=== PATIENT | male | born 1970 | race Caucasian/White ===

== ENCOUNTER 2016-05-08 18:59 | Emergency (ER) | payer MEDICARE ==
[2016-05-08 19:31] VITALS: RESP 18; TEMP 98
--- NOTE | 2016-05-08 20:14 | ED ---
General Adult HPI - General Chief complaint: Fall Stated complaint: FELL 8 FT NECK STIFF, LEFT HIP AND FOOT PAIN Time Seen by Provider: 05/08/16 19:51 Source: patient, family, RN notes reviewed Mode of arrival: wheelchair Limitations: no limitations - History of Present Illness Initial comments: Chief complaint and history of present illness is a 38-year-old male reports that he was on a ladder in his garage with a 12 foot high ceiling. Jazmín without The rafters tried to pull himself up and was able to manage to do so. He then fell to the cement floor below. He landed more on his left foot complains of left foot left heel pain also under was buttock and bumped his head when he fell backwards. This happened at 9:30 this morning denies loss of conscious. Initially able to walk into the house and keep his legs elevated but since then he developed pain to his foot ankle buttock low back mid back and head and neck - Related Data Home Medications Medication Instructions Recorded Confirmed Aspirin EC [Ecotrin Low Dose] 81 mg PO DAILY 01/21/14 05/08/16 Atenolol [Tenormin] 25 mg PO DAILY 01/21/14 05/08/16 Baclofen [Lioresal] 10 mg PO TID 01/21/14 05/08/16 Nortriptyline [Pamelor] 50 mg PO HS 01/21/14 05/08/16 Adalimumab [Humira Pen] 80 mg SQ Q14D 07/03/15 05/08/16 Omeprazole [PriLOSEC] 40 mg PO AC-BRKFST 07/03/15 05/08/16 Simvastatin 20 mg PO HS 07/03/15 05/08/16 Topiramate 25 mg PO BID 07/03/15 05/08/16 metFORMIN HCL ER [Glucophage Xr] 500 mg PO BID 07/03/15 05/08/16 Gabapentin [Neurontin] 2 tab PO BID 08/06/15 05/08/16 Previous Rx's Medication Instructions Recorded Nitroglycerin Sl Tabs [Nitrostat] 0.4 mg SUBLINGUAL Q5M PRN #100 tab 07/05/15 traMADol HCl [Ultram] 50 mg PO Q6H PRN #30 tab 05/08/16 Allergies Allergy/AdvReac Type Severity Reaction Status Date / Time No Known Allergies Allergy Verified 05/08/16 19:54 Review of Systems ROS Statement: Those systems with pertinent positive or pertinent negative responses have been documented in the HPI. Review of systems. Patient complaints as noted in the chief complaint. All systems were otherwise reviewed. Past medical problems, diabetes mellitus, fibromyalgia, hypertension, [place], sleep apnea, degenerative disc disease with ankylosing spondylitis. The patient's past surgeries include cholecystectomy, previous heart catheterization nasal surgery. ROS Other: All systems not noted in ROS Statement are negative. Past Medical History Past Medical History: Diabetes Mellitus, Fibromyalgia, Hypertension, Myocardial Infarction ([place]), Sleep Apnea/CPAP/BIPAP Additional Past Medical History / Comment(s): DDD, arthritis, back pain, Ankylosing Spondylitis Last Myocardial Infarction Date:: 2015 Mini Heart Attack History of Any Multi-Drug Resistant Organisms: None Reported Past Surgical History: Cholecystectomy, Heart Catheterization Additional Past Surgical History / Comment(s): Nasal surgery, vasectomy, hernia surgery Past Anesthesia/Blood Transfusion Reactions: No Reported Reaction Past Psychological History: No Psychological Hx Reported Smoking Status: Never smoker Past Alcohol Use History: None Reported Past Drug Use History: None Reported General Exam - General Exam Comments Initial Comments: General: The patient is awake and alert, [place] collar was placed when the patient arrived via private auto. Vital signs show temperature 98.0 pulse 87 respiratory rate 18 pulse ox 90% room air blood pressure 151/86. Elevated systolic and diastolic noted. Patient is in pain he will be following up with his family physician next 1-4 weeks Eye: Pupils are equal, round and reactive to light, extra-ocular movements are intact ; there is normal conjunctiva bilaterally. No signs of icterus. Ears, nose, mouth and throat: There are moist mucous membranes and no oral lesions. No chipped teeth no TMJ pain Neck: Patient has a [place] collar on. Complaining of neck pain prior to getting to emergency room. Cardiovascular: There is a regular rate and rhythm. No murmur, rub or gallop is appreciated. Respiratory: Lungs are clear to auscultation, respirations are non-labored, breath sounds are equal. No wheezes, stridor, rales, or rhonchi. Gastrointestinal: Soft, non-distended, non-tender abdomen without masses or organomegaly noted. There is no rebound or guarding present. No CVA tenderness. Bowel sounds are unremarkable. Back: Pain to his mid thoracic spine and lumbar spine. Pain to his left buttock region. Pain to his left foot and heel. Musculoskeletal: Normal ROM, no tenderness, There is no calf tenderness or swelling. Sensation intact. Pulses equal bilaterally 2+. Neurological: CN II-XII intact, There are no obvious motor or sensory deficits. Coordination appears grossly intact. Speech is normal. No focal or lateralizing findings. No focal or lateralizing findings Skin: Skin is warm and dry and no rashes or lesions are noted. Limitations: no limitations Course Vital Signs 05/08/16 19:27 Temperature 98.0 F Pulse Rate 87 Respiratory 18 Rate Blood Pressure 151/86 O2 Sat by Pulse 98 Oximetry Medical Decision Making - Medical Decision Making Multiple x-rays were done and reviewed by radiologist his findings are; CT of the brain and cervical spine were done and reviewed and they are entirety. Final impression is negative CT of the brain. Spondylotic changes in the cervical spine. No fracture. As read by Dr. De Souza x-ray of the thoracic spine was done and reviewed by radiologist his findings are vertebra a fairly normal alignment. There is spurring throughout the thoracic spine. There is no evidence of paraspinal mass. Posterior elements are intact. See no compression fracture. Impression; spondylotic change. No fracture seen. No change compared to the lateral chest x-ray of 07/03/15. As read by Dr. De Souza X-rays of lumbosacral spine were done and reviewed by radiologist his final impression is no fracture seen. There are ankylotic changes that are suggestive of ankylosing spondylitis. As read by Dr. De Souza X-ray of the pelvis is done and reviewed by radiologist's his final impression is no acute abnormality of the pelvis. As read by Dr. De Souza X-ray of the foot, left foot were done and reviewed by radiologist his findings are no fracture dislocation. Metatarsals are intact. There are plantar and Achilles calcaneal spurs. Impression calcaneal spurring. No fracture seen. As read by Dr. De Souza X-rays of the left calcaneus reviewed by radiologist his findings are subtalar joint is normal. There are plantar and Achilles calcaneal spurs. No fracture. Impression calcaneal spurring. No fracture seen. As read by Dr. De Souza Examination finds no changes. The patient be given tramadol which has worked in the past. Told to follow-up with family physician. Disposition Clinical Impression: Fall, Musculoskeletal strain, History of ankylosing spondylitis, Contusion, multiple sites Disposition: HOME SELF-CARE Condition: Fair Instructions: Contusion in Adults (ED) Additional Instructions: Follow-up with family physician. Use ice were hurts. Use tramadol for pain. Return emergency room if you have any difficulties. Prescriptions: traMADol HCl [Ultram] 50 mg PO Q6H PRN #30 tab PRN Reason: Pain Time of Disposition: 22:08
--- NOTE | 2016-05-08 20:37 | CT ---
EXAMINATION TYPE: CT brain lópez walsh DATE OF EXAM: 05/08/2016 8:27 PM COMPARISON: NONE HISTORY: Patient complains of backwards fall off of ladder with blow to back of head and neck. CT DLP: 1558 mGycm Automated exposure control for dose reduction was used. TECHNIQUE: CT scan of the head and cervical spine are performed without contrast. FINDINGS: The ventricles and sulci appear normal. There is no mass effect or midline shift. There i s no sign of intracranial hemorrhage. The calvarium is intact. Cervical vertebra have normal alignment. There is hypertrophic spurring of the endplates from C3 to C 5. Facet joints are intact. Skull base is intact. I see no fracture. There is hypertrophic facet arth ropathy in the mid and lower cervical spine and more on the left side. IMPRESSION: Negative CT scan of the brain. Spondylotic changes in the cervical spine. No fracture.
--- NOTE | 2016-05-08 21:36 | XR ---
EXAMINATION TYPE: XR foot complete LT DATE OF EXAM: 05/08/2016 9:29 PM COMPARISON: NONE HISTORY: Fell 12 feet. TECHNIQUE: 3 views FINDINGS: I see no fracture nor dislocation. Metatarsals are intact. There are plantar and Achilles c alcaneal spurs. IMPRESSION: Calcaneal spurring. No fracture seen.
--- NOTE | 2016-05-08 21:37 | XR ---
EXAMINATION TYPE: XR calcaneus 2V LT DATE OF EXAM: 05/08/2016 9:29 PM COMPARISON: NONE HISTORY: Fall 2012 feet. Pain. TECHNIQUE: 2 views FINDINGS: Subtalar joint is normal. There are plantar and Achilles calcaneal spurs. I see no fracture . IMPRESSION: Calcaneal spurring. No fracture seen.
--- NOTE | 2016-05-08 21:38 | XR ---
EXAMINATION TYPE: XR pelvis AP view DATE OF EXAM: 05/08/2016 9:29 PM COMPARISON: NONE HISTORY: Fall 12 feet. Pain. TECHNIQUE: Single view FINDINGS: The pelvic ring is intact. Proximal femurs and hip joints are intact. Acetabula appear norm al. IMPRESSION: No acute abnormality of the pelvis.
--- NOTE | 2016-05-08 21:39 | XR ---
EXAMINATION TYPE: XR lumbosacral spine min 4V DATE OF EXAM: 05/08/2016 9:30 PM COMPARISON: NONE HISTORY: Back pain TECHNIQUE: 5 views FINDINGS: There is some bridging osteophyte formation in the lumbar spine. There is multilevel facet arthropathy with some ankylotic changes. Sacroiliac joints are intact. IMPRESSION: No fracture seen. There are ankylotic changes that are suggestive of ankylosing spondylit is.
--- NOTE | 2016-05-08 21:41 | XR ---
EXAMINATION TYPE: XR thoracic spine 2V DATE OF EXAM: 05/08/2016 9:30 PM COMPARISON: NONE HISTORY: Pain TECHNIQUE: 4 views FINDINGS: Vertebrae are fairly normal alignment. There is spurring throughout the thoracic spine. The re is no evidence of paraspinal mass. Posterior elements are intact. I see no compression fracture. IMPRESSION: Spondylotic changes. No fracture seen. No change compared to lateral chest x-ray of 2015.
[2016-05-08] MEDS ORDERED: traMADol 50 MG TAB PO STA (22:04)
[2016-05-08 22:18] VITALS: BP 138/68; PULSE 76
== END 2016-05-08 22:16 | disposition home or self-care (01) ==
LOC: EC 18:59
DX: T14.8 Other injury of unspecified body region (principal); E11.9 Type 2 diabetes mellitus without complications; I10 Essential (primary) hypertension; M79.7 Fibromyalgia; M19.90 Unspecified osteoarthritis, unspecified site; G47.30 Sleep apnea, unspecified; Z79.82 Long term (current) use of aspirin; Z79.899 Other long term (current) drug therapy; Z79.84 Long term (current) use of oral hypoglycemic drugs; W11.XXXA Fall on and from ladder, initial encounter; Y92.008 Other place in unspecified non-institutional (private) residence as the place of occurrence of the external cause
CPT/HCPCS: 70450; 72070; 72110; 72125; 72170; 99284

== ENCOUNTER → 2016-08-05 | Outpatient (CLI) | payer MEDICARE ==
--- NOTE | 2016-08-12 12:32 | P.ARTDOP ---
Arterial Doppler LOWER EXTREMITY ARTERIAL DOPPLER: DATE OF SERVICE: 08/05/2016 Reason for study: Suspect PVD. Doppler waveforms: Multiphasic bilaterally throughout. Pulse volume recording: Normal configuration. Pressure gradients: None. Ankle-brachial indices: Greater than 1 bilaterally. Toe pressures: 113 on the right, 97 on the left Impression: Normal study.
== END | disposition home or self-care (01) ==
LOC: RADUSWWP 12:35
PROVIDERS: ATTEND Family Medicine
DX: I73.9 Peripheral vascular disease, unspecified (principal)
CPT/HCPCS: 93923

== ENCOUNTER → 2016-08-12 | Outpatient (CLI) | payer MEDICARE ==
[2016-08-12 07:07] LABS: Blood Urea Nitrogen 18 mg/dL (9-20); Non-African American GFR(MDRD) >60 (>60 ml/min/1.73 sqM)
--- NOTE | 2016-08-12 13:34 | MR ---
EXAMINATION TYPE: MR brain wo/w con DATE OF EXAM: 08/12/2016 7:58 AM COMPARISON: 11/04/2011 HISTORY: 46-year-old male transient alteration of awareness, spasms TECHNIQUE: Multiplanar, multisequence images of the brain and brainstem were acquired before and aft er administration of 20 mL IV MultiHance. Diffusion weighted imaging is performed. FINDINGS: No evidence for acute infarction, hemorrhage, mass, mass effect, midline shift, herniation, effacemen t of basal cisterns, or extra-axial fluid collection. The ventricles and sulci are age-appropriate. Major intracranial flow voids are intact. T2/FLAIR weighted sequences show no white matter signal abnormality. Incidental partially empty sella. Otherwise, midline structures demonstrate normal morphology. The c raniocervical junction is normal. Post contrast images demonstrate no evidence of pathologic enhancement. Dural venous sinuses are pat ent. Small mucosal retention cyst right maxillary sinus. Minimal partial opacification right mastoid air c ells. Mild mucosal thickening ethmoid air cells. Leftward nasal septal deviation. Globes are intact. IMPRESSION: 1. No acute intracranial abnormality or white matter signal changes seen. 2. No enhancing lesions. 3. Some retained secretions in the right mastoid air cells. Correlate for any mastoid pain to exclude mastoiditis.
--- NOTE | 2016-08-12 13:45 | MR ---
EXAMINATION TYPE: MR angio head wo con DATE OF EXAM: 08/12/2016 7:57 AM COMPARISON: 11/04/2011 HISTORY: 46-year-old male transient alteration of awareness, spasms TECHNIQUE: High-resolution 3-D [id number] imaging of the [place]. Rotational 3-D reconst ructions generated on a dedicated independent workstation. FINDINGS: No significant stenosis, arterial occlusion, or aneurysmal changes seen. IMPRESSION: Stable and unremarkable appearance to the [place].
== END | disposition home or self-care (01) ==
LOC: RADMRIMAIN 06:37
PROVIDERS: ATTEND Psychiatry & Neurology Neurology
DX: R40.4 Transient alteration of awareness (principal); R25.9 Unspecified abnormal involuntary movements
CPT/HCPCS: 82565; 84520; 70544; 70553; A9577

== ENCOUNTER → 2016-08-17 | Outpatient (CLI) | payer MEDICARE ==
--- NOTE | 2016-08-17 07:20 | MR ---
EXAMINATION TYPE: MR shoulder LT wo con DATE OF EXAM: 08/17/2016 6:45 AM COMPARISON: NONE HISTORY: pain in lt shoulder TECHNIQUE: Multiplanar multispin echo imaging of the left shoulder was performed. FINDINGS: Rotator cuff : There is mild thickening of the supraspinatus tendon compatible chronic tendinopathy m ild in degree. There is no complete or bursal/articular sided partial rotator cuff tear. The subscapu amilcar constituent of the rotator cuff is intact. Bursa: No bursal effusion or thickening is seen. Musculature: There is no muscular tear, contusion, or atrophy. Acromioclavicular joint : Small subacromial spur appears to result in mild impingement. Mild AC joint arthropathy noted. Osseous structures : There are no fractures or regions of abnormal bone marrow si gnal intensity. Long biceps tendon : The biceps tendon is normally situated within the bicipital groove. No complete or partial biceps tendon tear is present. Glenohumeral Joint fluid : There is no glenohumeral joint effusion. Cartilage and Bone : No focal hyaline cartilage defects are noted. No Hill-Sachs, reverse Hill-Sachs, or bony Bankart lesions are seen. Labrum : There are no SLAP or soft tissue [place] lesions. No paralabral cysts are seen. OTHER FINDINGS : none IMPRESSION: 1. Mild chronic tendinopathy supraspinatus tendon
== END | disposition home or self-care (01) ==
LOC: RADMRIMAIN 06:01
PROVIDERS: ATTEND Physician Assistant Medical
DX: M67.814 Other specified disorders of tendon, left shoulder (principal)

== ENCOUNTER → 2017-07-06 | Outpatient (CLI) | payer MEDICARE ==
--- NOTE | 2017-07-06 19:47 | CONS ---
CONSULTATION This is a consultation note for sleep apnea. Brett is 47-year-old, obese male patient established having obstructive sleep apnea more than 10 years ago. The original polysomnogram is not available to me at the time of the evaluation; however, I have seen the series of CPAP titration that the patient had over the years. The last one being back in 2012 during which she was titrated a CPAP pressure of 13 cm of water. He has older generation CPAP unit which he now seeks to update. Meanwhile the patient has gained significant amount of weight. The patient used to weigh around 238 pounds back in 2012 and currently is up to 259. He has also developed multiple medical problems and comorbidities. He has rheumatologic problems including RA, possible ankylosing spondylitis and is maintained on Humira. He is also known to have diabetes, hypertension, coronary artery disease with previous CO along with fibromyalgia. He wears his CPAP every night. However he is not seeing the benefit that he used to see in the past. He feels the pressure is low. He apparently can talk through his CPAP pressure without any difficulties. He has snoring, quits breathing at night and he is having increased tiredness and sleepiness during the day. He goes to bed between 9-10 p.m. Wakes up at 10 a.m. in the morning and still feeling drowsy and sleepy with an Lowell score of 14. For that reason, he came in for evaluation. PAST MEDICAL HISTORY: 1. Obesity. 2. Obstructive sleep apnea. 3. Diabetes. 4. Hypertension. 5. Coronary artery disease. 6. Ankylosing spondylitis. 7. RA. 8. Fibromyalgia. SURGICAL HISTORY: Includes cholecystectomy, vasectomy, rhinoplasty and hernia repair. DRUG ALLERGIES: Not known. OUTPATIENT MEDICATION LIST: Includes Humira once every other week, omeprazole 40 daily, triamterene hydrochlorothiazide 37.5/25 1 tablet a day. Aspirin 81 mg p.o. daily, baclofen 10 mg on a p.r.n. basis. Atenolol 25 mg p.o. daily, metformin 500 mg twice a day, gabapentin 600 mg 3 times a day. Nortriptyline 50 mg at bedtime. Zocor 20 mg p.o. daily. Nitroglycerin 0.4 mg on a p.r.n. basis. SOCIAL HISTORY: The patient is a nonsmoker. No history of alcohol. No history of IV drugs. He is currently on disability. FAMILY HISTORY: Negative for sleep apnea. REVIEW OF SYSTEMS: 12-point review of system was done. Note that the patient has been feeling excessively fatigued and sleepy. He snores and stops breathing. He has nocturia. He has grinding of the teeth. He has dry mouth in the morning and has restlessness in his lower extremities bilaterally. He has sexual dysfunction. No anxiety. No depression. He has irritability and problems with memory and concentration. He has problems falling asleep during the day. He worries about his sleep considerably. No nocturnal chest pain. No palpitation. No nocturnal shortness of breath. He has chronic diffuse body pain. BP is 144/87, pulse 76, respirations 16, temperature 97.5 saturation 98% on room air. Weight is 259. Height is 5 feet 7 inches, BMI is 40.5. Neck size 19 inches. GENERAL APPEARANCE: Calm comfortable, no acute distress. Head is atraumatic, normocephalic. Neck short, supple. Crowding of posterior pharynx. There is no goiter or neck masses. LUNGS: Diminished breath sounds bilaterally. HEART: Sounds regular rhythm. Normal S1, S2. No S3. No murmurs. ABDOMEN: Soft, nontender. No organomegaly. EXTREMITIES: No edema. No cyanosis or clubbing. NEUROLOGICALLY: The patient is alert and oriented x3. No focal neurological deficits. PSYCHIATRICALLY: There was no anxiety or depression. The patient's mood and affect is appropriate. SKIN: Negative for any wounds or ulceration. IMPRESSION: 1. Obstructive sleep apnea coming in for re-evaluation. The patient is symptomatic despite being on CPAP pressure of 9 cm of water. He needs to be re-evaluated. The pressure needs to be updated and the patient may also need a new CPAP machine. I suspect his pressure requirements have gone up as the patient has developed multiple comorbidities and he has gained weight. 2. Obesity with a BMI of 40.5. 3. Chronic hypersomnia with an Lowell score of 14. 4. Rheumatologic problems including rheumatoid arthritis, fibromyalgia and possible ankylosing spondylitis. 5. History of chronic immune suppression with Humira. 6. Coronary artery disease with previous CO. 7. Diabetes. 8. Hyperlipidemia. PLAN: 1. Discussed the findings with the patient. 2. Encourage weight loss. 3. Obviously the patient will need another CPAP titration during which the pressures will be updated and the patient will be given a new mask interface and a new CPAP machine. 4. May need to track down his older polysomnogram that established the diagnosis many years back. 5. Continue treating his comorbidities and we will continue to follow. CARLOS / NAGA: [id number] /
== END | disposition home or self-care (01) ==
LOC: SLEEP 14:18
PROVIDERS: ATTEND Internal Medicine Critical Care Medicine
DX: G47.33 Obstructive sleep apnea (adult) (pediatric) (principal); E66.9 Obesity, unspecified; Z68.41 Body mass index [BMI] 40.0-44.9, adult; G89.29 Other chronic pain; G47.10 Hypersomnia, unspecified; M06.9 Rheumatoid arthritis, unspecified; M79.7 Fibromyalgia; I25.10 Atherosclerotic heart disease of native coronary artery without angina pectoris; E11.9 Type 2 diabetes mellitus without complications; E78.5 Hyperlipidemia, unspecified; Z86.2 Personal history of diseases of the blood and blood-forming organs and certain disorders involving the immune mechanism; Z99.89 Dependence on other enabling machines and devices; Z79.899 Other long term (current) drug therapy; Z79.82 Long term (current) use of aspirin; Z79.84 Long term (current) use of oral hypoglycemic drugs
CPT/HCPCS: 99211

== ENCOUNTER → 2017-10-26 | Outpatient (CLI) | payer MEDICARE ==
--- NOTE | 2017-10-26 14:49 | PN ---
PROGRESS NOTE This patient is a 47 -year-old coming in for a compliancy check regarding his new CPAP machine. The patient was awakened from having severe obstructive sleep apnea. A home sleep study showed an AHI of 79. The patient underwent a CPAP titration. He was titrated to a CPAP pressure of 10 cm of water. The patient was offered an Mirage FX nose mask. On today's evaluation, the patient reports marked improvement in his symptoms in general. The patient is benefiting from the treatment. He is waking up alert and refreshed during the day. He is going to travel to [place]. His son is a [employer] champion. He has traveled with him and he was going to take his CPAP machine with him knowing that he cannot fall asleep or he can maintain sleep without the CPAP machine. His compliance data indicates that he has been using his CPAP every night. His compliancy for more than 4 hours at 100%. The patient has been averaging around 8.3 hours of CPAP use per night. AHI while on treatment is down to 0.3 and the leak factor 23 L per minute. The patient has no complaints and is using a Mirage FX nose mask. REVIEW OF SYSTEMS: 12-point review of system was done. Positive findings are mentioned above history of present illness. In general the sleep quality is improved with CPAP therapy. Denies having breathing. No insomnia. No choking or gasping sensation. No nocturia. No gasping for air. No grinding of the teeth. No anxiety or panic attacks. No palpitation. No heartburn. No shortness of breath at nighttime. No claustrophobia. No sexual dysfunction. PHYSICAL EXAMINATION: BP is 119/83, pulse 87, respirations 16, Markham score of 15. Weight is , and temperature 98.0. General appearance: Calm and comfortable. Head is atraumatic, normocephalic. Neck is short, supple. Crowding of posterior pharynx. There is no goiter or neck masses. LUNGS: Clear to auscultation. HEART: Sounds are regular rate and rhythm. Normal S1, S2. No S3. No murmurs. ABDOMEN: Soft, nontender. No organomegaly. EXTREMITIES: No edema. No cyanosis or clubbing. NEUROLOGIC: Alert and oriented x3. There is no focal neurological deficits. PSYCHIATRIC: Negative for anxiety or depression. IMPRESSION: 1. Severe obstructive sleep apnea with an AHI of 79. Patient to undergo successful CPAP therapy at a pressure of 10 cm of water. 2. Chronic hypersomnia improved. 3. Morbid obesity with a BMI of 40.5. 4. Rheumatoid arthritis. 5. Fibromyalgia. 6. Coronary artery disease with previous myocardial infarction. 7. Diabetes. 8. Hyperlipidemia. PLAN: Treatment is successful. The patient will continue same CPAP pressure of 10 cm of water. Keep him on a Mirage FX nose mask. Encourage continuing the CPAP at same level of pressure. Encourage weight loss. See me back in a year's time and follow up earlier if needed. MMODL / IJN: [id number] /
== END | disposition home or self-care (01) ==
LOC: SLEEP 13:10
PROVIDERS: ATTEND Internal Medicine Critical Care Medicine
DX: G47.33 Obstructive sleep apnea (adult) (pediatric) (principal); M79.7 Fibromyalgia; I25.10 Atherosclerotic heart disease of native coronary artery without angina pectoris; E11.9 Type 2 diabetes mellitus without complications; E78.5 Hyperlipidemia, unspecified; I25.2 Old myocardial infarction; M06.9 Rheumatoid arthritis, unspecified; E66.01 Morbid (severe) obesity due to excess calories; Z68.41 Body mass index [BMI] 40.0-44.9, adult; Z99.89 Dependence on other enabling machines and devices

== ENCOUNTER → 2018-12-27 | Outpatient (CLI) | payer MEDICARE ==
--- NOTE | 2018-12-27 17:25 | PN ---
PROGRESS NOTE This is a 48-year-old male patient coming in for an annual check regarding his obstructive sleep apnea. The patient is known to have severe BRENNON with an AHI of 79 and the patient is currently on a CPAP pressure of 10 cm of water. He is using a Simplus full-face mask. In general, the patient is doing well. Based on the compliance data, the patient has been averaging around 9.2 hours of CPAP use per night. CPAP use for more than 4 hours is 100%. Leak is 36 L/minute. His weight is down by around 3 pounds since his last evaluation. His AHI while on treatment is down to 0.6. His humidity level is 5. The patient continues to use a Mirage FX nose mask. He has multiple other medical problems and comorbidities. No angina. No palpitations. No shortness of breath. No heartburn at nighttime. His hypersomnia has subsided. He has no complaints. He wants to renew his CPAP supplies. REVIEW OF SYSTEMS: Fourteen-point review of systems was done. Positive findings were all mentioned above in the history of present illness. PHYSICAL EXAMINATION: VITAL SIGNS: BP is 131/73, pulse 88, respirations 16, temperature 97.5, saturation 97% on room air. Height is 5 feet 7 inches, weight 256, and BMI is 40. GENERAL APPEARANCE: Calm, comfortable. HEAD: Atraumatic, normocephalic. NECK: Supple. No JVD. No goiter or neck masses. Mallampati class IV. LUNGS: Diminished; otherwise clear. HEART: Heart sounds are regular rate and rhythm. Normal S1, S2. No S3, S4. No murmurs. ABDOMEN: Soft, nontender. No organomegaly. EXTREMITIES: No edema. No cyanosis or clubbing. NEUROLOGIC: Alert and oriented x3. No focal neurological deficits. PSYCHIATRIC: Negative for anxiety or depression. SKIN: Negative for any wounds or ulceration. IMPRESSION: 1. Obstructive sleep apnea with apnea/hypopnea index of 79. Continues to receive successful CPAP therapy at a pressure of 10. 2. Increased leak, probably related to his older Mirage FX nose mask. 3. Chronic hypersomnia, improved. 4. Obesity with a body mass index of 40, unchanged compared to his last year's measurements. 5. Rheumatoid arthritis. 6. Fibromyalgia. 7. Coronary artery disease. 8. Previous myocardial infarction. 9. Diabetes. 10.Hyperlipidemia. PLAN: 1. Renew the patient's supplies, including a Mirage FX standard nose mask. 2. Encourage weight loss. 3. Keep the patient at the same pressure of 10 cm of water. Will continue to follow. See me back in a year's time, earlier if needed. CARLOS / NAGA: [id number] /
== END ==
LOC: SLEEP 13:59
PROVIDERS: ATTEND Internal Medicine Critical Care Medicine
DX: G47.33 Obstructive sleep apnea (adult) (pediatric) (principal); E66.9 Obesity, unspecified; M06.9 Rheumatoid arthritis, unspecified; M79.7 Fibromyalgia; I25.10 Atherosclerotic heart disease of native coronary artery without angina pectoris; I25.2 Old myocardial infarction; E11.9 Type 2 diabetes mellitus without complications; E78.5 Hyperlipidemia, unspecified; Z68.41 Body mass index [BMI] 40.0-44.9, adult

== ENCOUNTER 2019-01-03 18:21 | Emergency (ER) | payer MEDICARE ==
[2019-01-03 19:07] VITALS: BP 119/78; PULSE 75; RESP 18; TEMP 97.6
[2019-01-03] MEDS ORDERED: KETOROLAC 60 MG/2 ML VIAL IM STA (19:26)
--- NOTE | 2019-01-03 20:23 | XR ---
EXAMINATION TYPE: XR lumbar spine 2 or 3V DATE OF EXAM: 01/03/2019 COMPARISON: 05/08/2016 HISTORY: Back pain TECHNIQUE: 3 views FINDINGS: Lumbar vertebra have normal alignment. There is some ankylotic change in the lower lumbar s pine. There is disc space narrowing throughout lumbar spine. There is no compression fracture. There is some osteosclerosis at the sacroiliac joints. This could relate to chronic sacroiliitis. IMPRESSION: Spondylotic changes and sacroiliac changes and some ankylotic changes that could relate t o ankylosing spondylitis. No change compared to old exam. No fracture seen.
[2019-01-03] MEDS ORDERED: ACET/COD 300 MG/30 MG STARTER PACK 6 TAB BTL PO STA (20:41)
--- NOTE | 2019-01-03 20:42 | ED ---
Back Pain HPI - General Chief Complaint: Back Pain/Injury Stated Complaint: Bck pain/injury Time Seen by Provider: 01/03/19 19:08 Source: patient Limitations: no limitations - History of Present Illness Initial Comments: Patient is a 48-year-old male presenting to emergency Department with complaints of back pain has been increasing over the past 2 days. Patient states yesterday he was laying in bed and went to stretch his arms over niece's house when he felt a pop in his lower back. Patient states he's been having an increase in tightness and pain ever since. Patient has chronic issues with back pain and stiffness. Patient currently sees a neurology clinic. Patient denies any falls or trauma to the area. Patient denies any numbness or tingling into his extremities, trouble with urination. Patient denies any fever, chills. Patient has no other complaints at this time. Upon arrival to ER, vital signs are stable. - Related Data Home Medications Medication Instructions Recorded Confirmed Aspirin EC [Ecotrin Low Dose] 81 mg PO DAILY 01/21/14 05/08/16 Atenolol [Tenormin] 25 mg PO DAILY 01/21/14 05/08/16 Baclofen [Lioresal] 10 mg PO TID 01/21/14 05/08/16 Nortriptyline [Pamelor] 50 mg PO HS 01/21/14 05/08/16 Adalimumab [Humira Pen] 80 mg SQ Q14D 07/03/15 05/08/16 Omeprazole [PriLOSEC] 40 mg PO AC-BRKFST 07/03/15 05/08/16 Simvastatin 20 mg PO HS 07/03/15 05/08/16 Topiramate 25 mg PO BID 07/03/15 05/08/16 metFORMIN HCL ER [Glucophage Xr] 500 mg PO BID 07/03/15 05/08/16 Gabapentin [Neurontin] 2 tab PO BID 08/06/15 05/08/16 Previous Rx's Medication Instructions Recorded Nitroglycerin Sl Tabs [Nitrostat] 0.4 mg SUBLINGUAL Q5M PRN #100 tab 07/05/15 traMADol HCl [Ultram] 50 mg PO Q6H PRN #30 tab 05/08/16 predniSONE 20 mg PO BID 7 Days #14 tab 01/03/19 Allergies Allergy/AdvReac Type Severity Reaction Status Date / Time No Known Allergies Allergy Verified 01/03/19 19:05 Review of Systems ROS Statement: Those systems with pertinent positive or pertinent negative responses have been documented in the HPI. ROS Other: All systems not noted in ROS Statement are negative. Past Medical History Past Medical History: Diabetes Mellitus, Fibromyalgia, Hypertension, Myocardial Infarction ([place]), Sleep Apnea/CPAP/BIPAP Additional Past Medical History / Comment(s): DDD, arthritis, back pain, Last Myocardial Infarction Date:: 2015 Mini Heart Attack History of Any Multi-Drug Resistant Organisms: None Reported Past Surgical History: Cholecystectomy, Heart Catheterization Additional Past Surgical History / Comment(s): Nasal surgery, vasectomy, hernia surgery Past Anesthesia/Blood Transfusion Reactions: No Reported Reaction Past Psychological History: No Psychological Hx Reported Smoking Status: Never smoker Past Alcohol Use History: None Reported Past Drug Use History: None Reported General Exam - General Exam Comments Initial Comments: GENERAL: Well-appearing, well-nourished and in mild distress secondary to pain. HEAD: Atraumatic, normocephalic. EYES: Pupils equal round and reactive to light, extraocular movements intact, sclera anicteric, conjunctiva are normal. ENT: TMs normal, nares patent, oropharynx clear without exudates. Moist mucous membranes. NECK: Normal range of motion, supple without lymphadenopathy or JVD. LUNGS: Breath sounds clear to auscultation bilaterally and equal. No wheezes rales or rhonchi. HEART: Regular rate and rhythm without murmurs, rubs or gallops. ABDOMEN: Soft, nontender, normoactive bowel sounds. No guarding, no rebound. No masses appreciated. : Deferred EXTREMITIES: Normal range of motion, no pitting or edema. No clubbing or cyanosis. Pain with palpation of the lumbar paraspinals and spinous processes. No acute deformities felt. Patient has 5 out of 5 strength in upper and lower ext remities. Patient has equal and bilateral sensations. NEUROLOGICAL: Cranial nerves II through XII grossly intact. Normal speech,. PSYCH: Normal mood, normal affect. SKIN: Warm, Dry, normal turgor, no rashes or lesions noted. Limitations: no limitations Course Vital Signs 01/03/19 19:05 Temperature 97.6 F Pulse Rate 75 Respiratory 18 Rate Blood Pressure 119/78 O2 Sat by Pulse 97 Oximetry Medical Decision Making - Medical Decision Making Patient is a 48-year-old male presenting with low back pain after stretching in bed and feeling a pop in his low back. Patient has history of chronic back issues. On exam patient has tenderness of the lumbar paraspinals as well as lumbar spinous processes. Patient denies any fever, chills, numbness and tingling to the legs, pick saddle paresthesias, trouble with urination or defecation. X-ray of the lumbar spine reveals spondylitic changes and sacroiliac changes and some ankylotic changes that could relate to ankylosing spondylitis. No change compared to old exam. No fracture seen. Patient does have Flexeril at home. Patient will be given trial of steroids and a Toradol injection today for pain. It is discussed with patient that he needs to follow back up with his neurology clinic. Patient is in agreement with this plan of care. Patient stable for discharge at this time. Return parameters were discussed with the patient he verbalizes understanding. Case discussed with Dr. Fitzpatrick. Disposition Clinical Impression: Ankylosing spondylitis, Lumbar back pain Disposition: HOME SELF-CARE Condition: Good Instructions (If sedation given, give patient instructions): Acute Low Back Pain (ED) Additional Instructions: Please return to the Emergency Department if symptoms worsen or any other concerns. Follow-up with neurology as discussed. Prescriptions: predniSONE 20 mg PO BID 7 Days #14 tab Is patient prescribed a controlled substance at d/c from ED?: No Referrals: Evelin Hart III, MD [Primary Care Provider] - 1-2 days
== END 2019-01-03 20:55 | disposition home or self-care (01) ==
LOC: EC 18:21
DX: M45.6 Ankylosing spondylitis lumbar region (principal); E11.9 Type 2 diabetes mellitus without complications; I10 Essential (primary) hypertension; I25.2 Old myocardial infarction; M19.90 Unspecified osteoarthritis, unspecified site; G47.30 Sleep apnea, unspecified; Z99.89 Dependence on other enabling machines and devices; Z95.818 Presence of other cardiac implants and grafts; Z79.82 Long term (current) use of aspirin; Z79.84 Long term (current) use of oral hypoglycemic drugs; Z79.899 Other long term (current) drug therapy
CPT/HCPCS: 72100; 99283; 96372; J1885

== ENCOUNTER 2020-01-05 10:19 | Day surgery (SDC) | payer MEDICARE ==
[2020-01-04 10:47] VITALS: BMI 37.0
[2020-01-05 11:05] LABS: Glucose,Whole Blood 109 mg/dL (75-99)
[2020-01-05 11:10] VITALS: RESP 16; TEMP 98.1
[2020-01-05 11:26] LABS: Basophils # (A) 0.1 k/uL (0-0.2); Basophils % (A) 1 %; Eosinophils # (A) 0.1 k/uL (0-0.7); Eosinophils % (A) 1 %; HCT 39.8 % (39.0-53.0); HGB 13.1 gm/dL (13.0-17.5); Lymphocytes # (A) 1.9 k/uL (1.0-4.8); Lymphocytes % (A) 21 %; MCH 27.4 pg (25.0-35.0); MCHC 32.8 g/dL (31.0-37.0); MCV 83.3 fL (80.0-100.0); Mean Platelet Volume 6.8; Monocytes # (A) 0.6 k/uL (0-1.0); Monocytes % (A) 6 %; Neutrophils # (A) 6.5 k/uL (1.3-7.7); Neutrophils % (A) 70 %; Platelet Count 288 k/uL (150-450); RBC 4.78 m/uL (4.30-5.90); RDW 14.1 % (11.5-15.5); WBC 9.3 k/uL (3.8-10.6)
[2020-01-05 11:28] LABS: African American GFR (CKD) >90 (>60 ml/min/1.73 sqM); Anion Gap 9 mmol/L; Blood Urea Nitrogen 21 mg/dL (9-20); C Reactive Protein 26.4 mg/L (<10.0); Carbon Dioxide 24 mmol/L (22-30); Chloride 102 mmol/L (98-107); Creatine Kinase 113 U/L (55-170); Non-African American GFR(CKD) >90 (>60 ml/min/1.73 sqM); Potassium 4.2 mmol/L (3.5-5.1); Sodium 135 mmol/L (137-145)
[2020-01-05 12:09] LABS: Erythrocyte Sedimentation Rate 21 mm/hr (0-15)
[2020-01-05] MEDS ORDERED: HEPARIN SODIUM 1,000 UN/ML (10ML VL) ONE (12:43)
[2020-01-05] MEDS ORDERED: LIDOCAINE 1% INJ 10MG/ML (20 ML MDV) ONE (12:43)
--- NOTE | 2020-01-05 14:03 | IR ---
EXAMINATION TYPE: IR cvc insert >=5 years DATE OF EXAM: 01/05/2020 COMPARISON: NONE CLINICAL HISTORY: Infection Needs long-term intravenous access for antibiotics. PROCEDURE: Hand hygiene obtained with soap and water and alcohol-based hand rub. After informed consent, the skin overlying the left basilic vein was localized with ultrasound and no ana to be compressible and patent. An ultrasound image was obtained and submitted on the patient's c abreu. The overlying skin was prepped and draped and Lidocaine was used for local anesthesia. A skin adrianna was made with a scalpel. Access was gained to the vein under ultrasound guidance with a 21 gau ge needle and a 0.018 inch wire was advanced, patient reported pain down the arm however, the site wa s aborted. Using similar technique access was attempted more centrally but the wire could not be adva nced. Attention then directed to the left cephalic vein, using similar technique access was gained to the vein with a 21-gauge needle, 0.018 inch wire was advanced. Access site was dilated with Peel-Aw ay sheath and catheter tailored to the appropriate length and advanced such that the distal tip is at the cavoatrial junction. Spot image was obtained verifying placement. Catheter was fixed to the sk in and a sterile dressing was placed following hemostasis. Catheter was aspirated and flushed with s chano. Patient was discharged in stable condition without complication.Maximal barrier technique is utilized. Ultrasound image is documented on the chart. Ultrasound used with sterile technique. Fluoro time and fluoroscopic images submitted to document procedure: 195 intraoperative images, 2.2 m inutes fluoroscopy time IMPRESSION: STATUS POST ULTRASOUND AND FLUOROSCOPIC GUIDED PICC LINE PLACEMENT, READY FOR USE. THIS PROCEDURE WAS PERFORMED BY THE UNDERSIGNED.
[2020-01-05 16:19] VITALS: BP 142/83; PULSE 67
== END 2020-01-05 14:16 | disposition home or self-care (01) ==
LOC: CATHCVL 10:19
PROVIDERS: ATTEND Radiology Diagnostic Radiology
DX: M46.24 Osteomyelitis of vertebra, thoracic region (principal); M46.44 Discitis, unspecified, thoracic region; R20.2 Paresthesia of skin; R20.0 Anesthesia of skin; R53.1 Weakness; E11.9 Type 2 diabetes mellitus without complications; I10 Essential (primary) hypertension; E78.5 Hyperlipidemia, unspecified; I25.2 Old myocardial infarction; G47.30 Sleep apnea, unspecified; G89.29 Other chronic pain; M54.9 Dorsalgia, unspecified; Z79.82 Long term (current) use of aspirin; Z79.899 Other long term (current) drug therapy; Z79.1 Long term (current) use of non-steroidal anti-inflammatories (NSAID); Z79.4 Long term (current) use of insulin; Z90.49 Acquired absence of other specified parts of digestive tract; Z98.890 Other specified postprocedural states; Z87.19 Personal history of other diseases of the digestive system
CPT/HCPCS: 36573; 80051; 85652; 82565; 82550; 84520; 85025; 86140; C1751; C1769